=== PATIENT | male | born 1940 | race Caucasian/White ===

== ENCOUNTER → 2017-01-03 | Outpatient (CLI) | payer MEDICARE, BC ==
[~2017-01-03] MED LIST: ALTACE 10MG TAB10 MG PO; ALTACE 5MG5 MG PO; ASPIRIN 81M81 MG/TA2 PO; ASPIRIN E.C. 8181 MG PO; CALTRATE-600 W600 MG PO; CENTRUM SILVER1 CTB PO; COLACE 100100 MG/CAP PO; DECADRON 4MG TAB4 MG PO; FLOMAX 0.40.4 MG/CAP PO; K-DUR20 MEQ PO; LASIX 20MG TABL20 MG PO; LEVAQUIN 750MG750 M1 PO; METOPROLOL25 MG PO; MULTI VITAMINS1 TAB PO; NEXIUM 20MG20 MG; NEXIUM 20MG20 MG PO; NEXIUM40 MG PO; PERICOLACE 30 M1 CAP PO; REVLIMID2.5 MG; TOPROL XL 25MG25 MG PO; TOPROL XL 50MG50 MG PO; VELCADE3.5 MG IV; ZOCOR; ZOCOR 20MG20 MG PO; ZOFRAN8 MG PO; ZOMETA4 MG/5 ML IV; ZOVIRAX400 MG PO
== END ==
LOC: COL.RAD 07:55
DX: K44.9 Diaphragmatic hernia without obstruction or gangrene (principal); R10.84 Generalized abdominal pain; M54.5 Low back pain; R61 Generalized hyperhidrosis
CPT/HCPCS: Q9967

== ENCOUNTER → 2017-04-08 | Outpatient (CLI) | payer MEDICARE, BC | LOC: COL.RAD 07:35 | DX: C61 Malignant neoplasm of prostate (principal); M47.816 Spondylosis without myelopathy or radiculopathy, lumbar region; S22.089A Unspecified fracture of T11-T12 vertebra, initial encounter for closed fracture | CPT/HCPCS: A9503 ==

== ENCOUNTER 2017-05-15 10:47 | Emergency (ER) | payer MEDICARE, BC ==
[~2017-05-15] VITALS: Ht 185.4 cm; Wt 90.0 kg
[~2017-05-15 10:47] MED LIST changes: -ALTACE 5MG5 MG PO; -ASPIRIN 81M81 MG/TA2 PO; -CALTRATE-600 W600 MG PO; -CENTRUM SILVER1 CTB PO; -DECADRON 4MG TAB4 MG PO; -K-DUR20 MEQ PO; -LASIX 20MG TABL20 MG PO; -LEVAQUIN 750MG750 M1 PO; -MULTI VITAMINS1 TAB PO; -NEXIUM 20MG20 MG; -NEXIUM 20MG20 MG PO; -REVLIMID2.5 MG; -TOPROL XL 50MG50 MG PO; -VELCADE3.5 MG IV; -ZOFRAN8 MG PO; -ZOMETA4 MG/5 ML IV; -ZOVIRAX400 MG PO
[2017-05-15 10:52] VITALS: TEMP 98.6
[2017-05-15] MEDS ORDERED: TOPROL XL 50MG50 MG PO (11:10)
[2017-05-15] MEDS ORDERED: NEXIUM 20MG20 MG PO (11:11)
[2017-05-15] MEDS ORDERED: MULTI VITAMINS1 TAB PO (11:12)
[2017-05-15 11:36] LABS: EOS % 0.3 % (0-4.0); GRAN # 2.1 (1.4-6.5); GRAN % 66.8 % (42.2-75.2); LYMPH # 0.8 (1.2-3.4); LYMPH % 26.6 % (20.0-51.0); MEAN CELL VOLUME 100 fl (80.0-100.0); MEAN CORPUSCULAR HGB CONC 34 g/dl (33.0-37.0); MEAN PLATELET VOLUME 10.1 fl (7.4-10.4); MONO # 0.2 (0.1-0.6); PLATELET COUNT 195 K/mm3 (130-400); RED BLOOD COUNT 2.87 M/mm3 (4.20-5.60); REDCELL DISTRIBUTION WIDTH-CV 13.7 % (11.5-14.5); RETIC % 1.9 % (0.5-3.52); WHITE BLOOD COUNT 3.2 K/mm3 (4.8-10.8)
[2017-05-15 11:40] LABS: HEMATOCRIT 28.6 % (42.0-52.0); HEMOGLOBIN 9.6 g/dl (13.5-18.0); MEAN CORPUSCULAR HEMOGLOBIN 33 pg (27.0-31.0)
[2017-05-15 11:48] LABS: ADJUSTED CALCIUM 9.1 mg/dL (8.4-10.2); ALANINE AMINOTRANSFERASE 31 U/L (21-72); ALBUMIN 4.7 gm/dL (3.5-5.0); ALKALINE PHOSPHATASE 67 U/L (50-136); ANION GAP 11 mmol/L (7-16); BILIRUBIN,TOTAL 0.5 mg/dL (0.0-1.0); BLOOD UREA NITROGEN 19 mg/dL (9-20); CALCIUM 9.7 mg/dL (8.4-10.2); CARBON DIOXIDE 25 mmol/L (22-30); CHLORIDE 100 mmol/L (98-107); CREATININE, serum 0.77 mg/dL (0.66-1.25); GLUCOSE 84 mg/dL (74-106); SODIUM 136 mmol/L (137-145)
[2017-05-15 12:01] LABS: PH 6 (5-8); SQUAMOUS EPITHELIAL None Seen /hpf; URINE APPEARANCE Clear; URINE BACTERIA Rare /hpf; URINE BILIRUBIN Negative (NEGATIVE); URINE BLOOD Negative (NEGATIVE); URINE COLOR Yellow; URINE GLUCOSE Negative (NEGATIVE); URINE KETONE Negative (NEGATIVE); URINE RBC 0-2 /hpf; URINE UROBILINOGEN Negative (NEGATIVE); URINE WBC 0-2 /hpf
[2017-05-15 12:05] LABS: C-REACTIVE PROTEIN < 0.5 mg/dL (0.0-0.9)
[2017-05-15 12:33] VITALS: BP 205/93; PULSE 65
== END 2017-05-15 12:34 | disposition home or self-care (01) ==
LOC: COL.ER 10:47
PROVIDERS: Family Medicine
DX: D64.9 Anemia, unspecified (principal); R79.89 Other specified abnormal findings of blood chemistry; I10 Essential (primary) hypertension; Z85.46 Personal history of malignant neoplasm of prostate

== ENCOUNTER → 2017-06-02 | Outpatient (CLI) | payer MEDICARE, BC ==
[~2017-06-02] MED LIST changes: +ALTACE 5MG5 MG PO; +ASPIRIN 81M81 MG/TA2 PO; +CALTRATE-600 W600 MG PO; +CENTRUM SILVER1 CTB PO; +DECADRON 4MG TAB4 MG PO; +K-DUR20 MEQ PO; +LASIX 20MG TABL20 MG PO; +LEVAQUIN 750MG750 M1 PO; +MULTI VITAMINS1 TAB PO; +NEXIUM 20MG20 MG PO; +REVLIMID2.5 MG; +TOPROL XL 50MG50 MG PO; +VELCADE3.5 MG IV; +ZOFRAN8 MG PO; +ZOMETA4 MG/5 ML IV; +ZOVIRAX400 MG PO
== END ==
LOC: COL.RAD 11:25
DX: D64.9 Anemia, unspecified (principal); M89.9 Disorder of bone, unspecified

== ENCOUNTER 2017-06-12 09:45 | Inpatient (IN) | payer MEDICARE, BC ==
[~2017-06-12] VITALS: Ht 185.4 cm; Wt 93.7 kg
[~2017-06-12 09:45] MED LIST changes: -ALTACE 5MG5 MG PO; -ASPIRIN 81M81 MG/TA2 PO; -CALTRATE-600 W600 MG PO; -CENTRUM SILVER1 CTB PO; -DECADRON 4MG TAB4 MG PO; -K-DUR20 MEQ PO; -LASIX 20MG TABL20 MG PO; -LEVAQUIN 750MG750 M1 PO; -REVLIMID2.5 MG; -VELCADE3.5 MG IV; -ZOFRAN8 MG PO; -ZOMETA4 MG/5 ML IV; -ZOVIRAX400 MG PO
[2017-06-12 10:15] LABS: MEAN CELL VOLUME 100 fl (80.0-100.0); MEAN CORPUSCULAR HGB CONC 34 g/dl (33.0-37.0); MEAN PLATELET VOLUME 10.3 fl (7.4-10.4); PLATELET COUNT 150 K/mm3 (130-400); RED BLOOD COUNT 2.63 M/mm3 (4.20-5.60); REDCELL DISTRIBUTION WIDTH-CV 14.1 % (11.5-14.5); WHITE BLOOD COUNT 5.3 K/mm3 (4.8-10.8)
[2017-06-12 10:17] LABS: ADD PATHOLOGY DIFF REVIEW NO; HEMATOCRIT 26.3 % (42.0-52.0); HEMOGLOBIN 8.8 g/dl (13.5-18.0); MEAN CORPUSCULAR HEMOGLOBIN 33 pg (27.0-31.0)
[2017-06-12] MEDS ORDERED: VELCADE3.5 MG IV (10:25)
[2017-06-12] MEDS ORDERED: ZOVIRAX400 MG PO (10:26)
[2017-06-12] MEDS ORDERED: DECADRON 4MG TAB4 MG PO (10:26)
[2017-06-12 10:30] LABS: ADJUSTED CALCIUM 8.6 mg/dL (8.4-10.2); ALBUMIN 4.2 gm/dL (3.5-5.0); BILIRUBIN,TOTAL 0.8 mg/dL (0.0-1.0); C-REACTIVE PROTEIN 6.2 mg/dL (0.0-0.9); CALCIUM 8.8 mg/dL (8.4-10.2); CREATININE, serum 0.86 mg/dL (0.66-1.25); TOTAL PROTEIN 6.7 gm/dL (6.4-8.2)
[2017-06-12 10:39] LABS: BAND 28 % (0-10); NEUTROPHILS 67 % (42.0-75.2); TOTAL CELLS COUNTED 100
[2017-06-12] MEDS ORDERED: ASPIRIN 81M81 MG/TA2 PO (10:41)
[2017-06-12] MEDS ORDERED: CENTRUM SILVER1 CTB PO (10:56)
[2017-06-12] MEDS ORDERED: CALTRATE-600 W600 MG PO (10:56)
[2017-06-12] MEDS ORDERED: NEXIUM 20MG20 MG PO (10:57)
[2017-06-12] MEDS ORDERED: TOPROL XL 50MG50 MG PO (10:58)
[2017-06-12] MEDS ORDERED: ZOCOR 20MG20 MG PO (10:58)
[2017-06-12] MEDS ORDERED: ALTACE 5MG5 MG PO (10:59)
[2017-06-12] MEDS ORDERED: FLOMAX 0.40.4 MG/CAP PO (10:59)
[2017-06-12] MEDS ORDERED: REVLIMID2.5 MG (11:01)
[2017-06-12 12:05] LABS: PH 6 (5-8); SQUAMOUS EPITHELIAL None Seen /hpf; URINE APPEARANCE Clear; URINE BACTERIA None Seen /hpf; URINE BILIRUBIN Negative (NEGATIVE); URINE BLOOD Negative (NEGATIVE); URINE COLOR Yellow; URINE GLUCOSE Negative (NEGATIVE); URINE KETONE Negative (NEGATIVE); URINE RBC 0-2 /hpf; URINE UROBILINOGEN Negative (NEGATIVE); URINE WBC 0-2 /hpf
[2017-06-12] MEDS ORDERED: ZOFRAN8 MG PO (13:31)
[2017-06-12] MEDS ORDERED: ZOMETA4 MG/5 ML IV (13:32)
[2017-06-12 14:23] VITALS: BP 154/58; PULSE 82; TEMP 98.7
[2017-06-12 16:16] VITALS: TEMP 102.9
[2017-06-12 18:00] VITALS: TEMP 99.3
[2017-06-12 18:35] LABS: CEREBROSPINAL TUBE #3; CSF APPEARANCE CLEAR; CSF COLOR COLORLESS
[2017-06-12 20:22] VITALS: BP 135/59; PULSE 86; TEMP 99.8
[2017-06-13] VITALS (7 sets, daily range): BP systolic 117–152; BP diastolic 55–67; PULSE 63–83; TEMP 98.4–101.3
[2017-06-13 10:03] LABS: GRAN # 2.8 (1.4-6.5); GRAN % 88.1 % (42.2-75.2); LYMPH # 0.3 (1.2-3.4); LYMPH % 10.6 % (20.0-51.0); MEAN CELL VOLUME 102 fl (80.0-100.0); MEAN CORPUSCULAR HGB CONC 33 g/dl (33.0-37.0); MEAN PLATELET VOLUME 10.1 fl (7.4-10.4); PLATELET COUNT 124 K/mm3 (130-400); RED BLOOD COUNT 2.24 M/mm3 (4.20-5.60); REDCELL DISTRIBUTION WIDTH-CV 14.6 % (11.5-14.5); WHITE BLOOD COUNT 3.1 K/mm3 (4.8-10.8)
[2017-06-13 10:05] LABS: HEMATOCRIT 22.9 % (42.0-52.0); HEMOGLOBIN 7.5 g/dl (13.5-18.0); MEAN CORPUSCULAR HEMOGLOBIN 33 pg (27.0-31.0)
[2017-06-14 03:52] VITALS: BP 148/56; PULSE 64; TEMP 98.6
[2017-06-14 06:23] LABS: EOS % 0.4 % (0-4.0); GRAN # 1.9 (1.4-6.5); GRAN % 78.4 % (42.2-75.2); LYMPH # 0.5 (1.2-3.4); LYMPH % 19.2 % (20.0-51.0); MEAN CELL VOLUME 102 fl (80.0-100.0); MEAN CORPUSCULAR HGB CONC 33 g/dl (33.0-37.0); MEAN PLATELET VOLUME 10.8 fl (7.4-10.4); MONO % 1.6 % (1.7-9.3); PLATELET COUNT 110 K/mm3 (130-400); REDCELL DISTRIBUTION WIDTH-CV 14.4 % (11.5-14.5); WHITE BLOOD COUNT 2.5 K/mm3 (4.8-10.8)
[2017-06-14 06:25] LABS: HEMATOCRIT 21.5 % (42.0-52.0); MEAN CORPUSCULAR HEMOGLOBIN 33 pg (27.0-31.0)
[2017-06-14 06:32] LABS: CREATININE, serum 0.78 mg/dL (0.66-1.25); POTASSIUM 3.7 mmol/L (3.4-5.0)
[2017-06-14 08:00] VITALS: BP 153/78; PULSE 68; TEMP 98.5
[2017-06-14 11:35] VITALS: BP 135/62; PULSE 62; TEMP 98.4
[2017-06-14 14:11] VITALS: BP 133/60; PULSE 63; TEMP 98
[2017-06-14 14:25] VITALS: BP 129/60; PULSE 62; TEMP 98
[2017-06-14 20:39] VITALS: BP 159/68; PULSE 63; TEMP 97.7
[2017-06-15 00:24] VITALS: BP 172/68; PULSE 58; TEMP 97.9
[2017-06-15 04:26] VITALS: BP 181/75; PULSE 59; TEMP 98.3
[2017-06-15 07:26] LABS: EOS % 0.5 % (0-4.0); GRAN # 1.5 (1.4-6.5); GRAN % 70.1 % (42.2-75.2); LYMPH # 0.6 (1.2-3.4); LYMPH % 27.5 % (20.0-51.0); MEAN CELL VOLUME 99 fl (80.0-100.0); MEAN CORPUSCULAR HGB CONC 33 g/dl (33.0-37.0); MEAN PLATELET VOLUME 10.5 fl (7.4-10.4); MONO % 1.4 % (1.7-9.3); PLATELET COUNT 125 K/mm3 (130-400); RED BLOOD COUNT 2.48 M/mm3 (4.20-5.60); REDCELL DISTRIBUTION WIDTH-CV 15.3 % (11.5-14.5); WHITE BLOOD COUNT 2.1 K/mm3 (4.8-10.8)
[2017-06-15 07:44] VITALS: BP 154/67; PULSE 66; TEMP 98.5
[2017-06-15 07:46] LABS: HEMATOCRIT 24.5 % (42.0-52.0); HEMOGLOBIN 8.1 g/dl (13.5-18.0); MEAN CORPUSCULAR HEMOGLOBIN 33 pg (27.0-31.0)
[2017-06-15] MEDS ORDERED: LEVAQUIN 750MG750 M1 PO (10:53)
[2017-06-15] MEDS ORDERED: K-DUR20 MEQ PO (10:57)
[2017-06-15] MEDS ORDERED: LASIX 20MG TABL20 MG PO (10:57)
[2017-06-15 11:58] VITALS: BP 126/94; PULSE 59; TEMP 98.3
== END 2017-06-15 13:20 | disposition home or self-care (01) | DRG 872 ==
LOC: COL.ER 09:45 → MEDICAL 12:14
PROVIDERS: Family Medicine; Internal Medicine; Internal Medicine Medical Oncology; Physician Assistant
PROC: 009U3ZX Drainage of Spinal Canal, Percutaneous Approach, Diagnostic (ICD-10-PCS; principal; 2017-06-12)
PROC: B01B1ZZ Fluoroscopy of Spinal Cord using Low Osmolar Contrast (ICD-10-PCS; 2017-06-12)
DX: A41.9 Sepsis, unspecified organism (principal); E87.1 Hypo-osmolality and hyponatremia; C90.00 Multiple myeloma not having achieved remission; M54.2 Cervicalgia; I25.10 Atherosclerotic heart disease of native coronary artery without angina pectoris; Z95.5 Presence of coronary angioplasty implant and graft; I10 Essential (primary) hypertension; D64.9 Anemia, unspecified; T45.1X5A Adverse effect of antineoplastic and immunosuppressive drugs, initial encounter
CPT/HCPCS: 99223-AI; 99233-AI; 99239; G0378; G8987-GO; G8988-GO; J0133; J0692; J1650; J1940; J2405; J3370; J7030; J7040; J7050; P9040

== ENCOUNTER 2017-06-30 09:37 | Outpatient (RCR) | payer MEDICARE, BC ==
[2017-06-30] VITALS (9 sets, daily range): BP systolic 159–187; BP diastolic 71–88; PULSE 52–84; TEMP 97.1–98.2
[~2017-06-30] VITALS: Ht 185.4 cm; Wt 93.2 kg
[~2017-06-30 09:37] MED LIST changes: +ALTACE 5MG5 MG PO; +ASPIRIN 81M81 MG/TA2 PO; +CALTRATE-600 W600 MG PO; +CENTRUM SILVER1 CTB PO; +DECADRON 4MG TAB4 MG PO; +K-DUR20 MEQ PO; +LASIX 20MG TABL20 MG PO; +LEVAQUIN 750MG750 M1 PO; +REVLIMID2.5 MG; +VELCADE3.5 MG IV; +ZOFRAN8 MG PO; +ZOMETA4 MG/5 ML IV; +ZOVIRAX400 MG PO
== END 2017-06-30 15:52 | disposition home or self-care (01) ==
LOC: EUO 09:37
DX: C90.00 Multiple myeloma not having achieved remission (principal)
CPT/HCPCS: J7050; P9016

== ENCOUNTER 2018-06-15 13:29 | Outpatient (RCR) | payer MEDICARE, BC ==
[2018-09-02] MEDS ORDERED: K-DUR 10 MEQ T10 MEQ PO (10:34)
[2018-09-02] MEDS ORDERED: LASIX 40MG TABL40 MG PO (10:34)
[2018-09-02] MEDS ORDERED: REVLIMID25 MG PO (10:35)
[2018-09-02] MEDS ORDERED: K-DUR20 MEQ PO (10:35)
[2018-09-02] MEDS ORDERED: EMPLICITI300 MG IV (10:37)
[2018-09-02] MEDS ORDERED: AMOXICILLIN 8751 TAB PO (11:53)
== END 2018-09-13 | disposition home or self-care (01) ==
LOC: WSST
DX: R13.12 Dysphagia, oropharyngeal phase (principal)
CPT/HCPCS: G8996-GN; G8997-GN

== ENCOUNTER → 2018-06-16 | Outpatient (CLI) | payer MEDICARE, BC | LOC: COL.RAD 10:25 | DX: R13.12 Dysphagia, oropharyngeal phase (principal) | CPT/HCPCS: G8996-GN; G8997-GN; G8998-GN ==

== ENCOUNTER → 2018-07-06 | Outpatient (CLI) | payer MEDICARE, BC | LOC: COL.VAS 14:08 | DX: R22.41 Localized swelling, mass and lump, right lower limb (principal); Z85.79 Personal history of other malignant neoplasms of lymphoid, hematopoietic and related tissues ==

== ENCOUNTER 2018-09-02 09:05 | Emergency (ER) | payer MEDICARE, BC ==
[~2018-09-02] VITALS: Ht 185.4 cm; Wt 82.7 kg
[2018-09-02 10:12] LABS: HEMATOCRIT 29.6 % (42.0-52.0); HEMOGLOBIN 9.8 g/dl (13.5-18.0); MEAN CELL VOLUME 94 fl (80.0-100.0); MEAN CORPUSCULAR HEMOGLOBIN 31 pg (27.0-31.0); MEAN CORPUSCULAR HGB CONC 33 g/dl (33.0-37.0); MEAN PLATELET VOLUME 11.3 fl (7.4-10.4); PLATELET COUNT 268 K/mm3 (130-400); RED BLOOD COUNT 3.16 M/mm3 (4.20-5.60); REDCELL DISTRIBUTION WIDTH-CV 14.2 % (11.5-14.5)
[2018-09-02 10:24] LABS: ALBUMIN 3.2 gm/dL (3.5-5.0); BILIRUBIN,TOTAL 0.3 mg/dL (0.0-1.0); C-REACTIVE PROTEIN 4.5 mg/dL (0.0-0.9); CALCIUM 8.8 mg/dL (8.4-10.2); CREATININE, serum 0.97 mg/dL (0.66-1.25); TOTAL PROTEIN 5.5 gm/dL (6.4-8.2)
[2018-09-02] MEDS ORDERED: K-DUR 10 MEQ T10 MEQ PO (10:34)
[2018-09-02] MEDS ORDERED: LASIX 40MG TABL40 MG PO (10:34)
[2018-09-02] MEDS ORDERED: REVLIMID25 MG PO (10:35)
[2018-09-02] MEDS ORDERED: K-DUR20 MEQ PO (10:35)
[2018-09-02 10:36] LABS: ERYTHROCYTE SEDIMENTATION RATE 20 mm/hr (0-30)
[2018-09-02] MEDS ORDERED: EMPLICITI300 MG IV (10:37)
[2018-09-02] MEDS ORDERED: AMOXICILLIN 8751 TAB PO (11:53)
[2018-09-02 14:41] VITALS: BP 119/63; PULSE 62; TEMP 98.4
== END 2018-09-02 14:41 | disposition home or self-care (01) ==
LOC: COL.ER 09:05
PROVIDERS: Family Medicine
DX: E86.0 Dehydration (principal); N39.0 Urinary tract infection, site not specified; L03.115 Cellulitis of right lower limb; Z79.82 Long term (current) use of aspirin
CPT/HCPCS: A4216; J0692; J3370; J7040

== ENCOUNTER 2018-11-20 09:26 | Outpatient (RCR) | payer MEDICARE, BC ==
[~2018-11-20] VITALS: Ht 185.4 cm; Wt 90.0 kg
[2018-11-20] VITALS (9 sets, daily range): BP systolic 143–176; BP diastolic 70–82; PULSE 58–73; TEMP 97.9–98.4
[~2018-11-20 09:26] MED LIST changes: +AMOXICILLIN 8751 TAB PO; +EMPLICITI300 MG IV; +K-DUR 10 MEQ T10 MEQ PO; +LASIX 40MG TABL40 MG PO; +REVLIMID25 MG PO
== END 2018-11-20 17:00 | disposition home or self-care (01) ==
LOC: EUO 09:26
DX: C90.00 Multiple myeloma not having achieved remission (principal); D63.0 Anemia in neoplastic disease
CPT/HCPCS: J7050; P9016

== ENCOUNTER 2019-04-13 09:43 | Outpatient (RCR) | payer MEDICARE, BC ==
[2019-04-13] VITALS (10 sets, daily range): BP systolic 128–151; BP diastolic 52–73; PULSE 54–63; TEMP 97.5–98.6
[~2019-04-13] VITALS: Ht 185.4 cm; Wt 87.7 kg
== END 2019-04-13 15:19 | disposition home or self-care (01) ==
LOC: EUO 09:43
DX: C90.00 Multiple myeloma not having achieved remission (principal); R53.83 Other fatigue
CPT/HCPCS: J7050; P9016

== ENCOUNTER 2019-11-04 16:29 | Emergency (ER) | payer MEDICARE, BC ==
[~2019-11-04] VITALS: Ht 185.4 cm; Wt 90.9 kg
[2019-11-04 16:46] VITALS: TEMP 98.4
[2019-11-04 18:17] LABS: ALBUMIN 3.4 gm/dL (3.5-5.0); BILIRUBIN,TOTAL 0.3 mg/dL (0.0-1.0); CALCIUM 8.2 mg/dL (8.4-10.2); CREATININE, serum 0.99 (0.66-1.25); TOTAL PROTEIN 5.5 gm/dL (6.4-8.2)
[2019-11-04 18:33] LABS: BASO # 0.1 (0.0-0.2); EOS # 0.1 (0.0-0.7); EOS % 2.8 % (0-4.0); GRAN # 4.1 (1.4-6.5); GRAN % 80.7 % (42.2-75.2); LYMPH # 0.5 (1.2-3.4); LYMPH % 10.7 % (20.0-51.0); MEAN CELL VOLUME 94 fl (80.0-100.0); MEAN CORPUSCULAR HGB CONC 33 g/dl (33.0-37.0); MEAN PLATELET VOLUME 10.1 fl (7.4-10.4); MONO # 0.2 (0.1-0.6); MONO % 4.4 % (1.7-9.3); PLATELET COUNT 311 K/mm3 (130-400); RED BLOOD COUNT 2.84 M/mm3 (4.20-5.60); REDCELL DISTRIBUTION WIDTH-CV 15.2 % (11.5-14.5)
[2019-11-04 18:34] LABS: HEMATOCRIT 26.7 % (42.0-52.0); HEMOGLOBIN 8.7 g/dl (13.5-18.0); MEAN CORPUSCULAR HEMOGLOBIN 31 pg (27.0-31.0)
[2019-11-04] MEDS ORDERED: ZITHROMAX Z PA250 MG PO (19:00)
[2019-11-04] MEDS ORDERED: AMOXICILLIN 8751 TAB PO (19:00)
[2019-11-04 20:10] VITALS: BP 128/75; PULSE 66
== END 2019-11-04 20:13 | disposition home or self-care (01) ==
LOC: COL.ER 16:29
PROVIDERS: Family Medicine
DX: J18.9 Pneumonia, unspecified organism (principal); C90.00 Multiple myeloma not having achieved remission; Z79.82 Long term (current) use of aspirin
CPT/HCPCS: J0456; J0696; J7030; J7050

== ENCOUNTER 2020-01-06 21:05 | Emergency (ER) | payer MEDICARE, BC ==
[~2020-01-06] VITALS: Ht 185.4 cm; Wt 88.6 kg
[~2020-01-06 21:05] MED LIST changes: +ZITHROMAX Z PA250 MG PO
[2020-01-06 21:12] VITALS: TEMP 97.8
[2020-01-06 21:41] LABS: BASO % 0.1 % (0.0-2.0); EOS # 0.1 (0.0-0.7); GRAN # 7.4 (1.4-6.5); GRAN % 80.8 % (42.2-75.2); LYMPH % 10.8 % (20.0-51.0); MEAN CELL VOLUME 89 fl (80.0-100.0); MEAN CORPUSCULAR HGB CONC 31 g/dl (33.0-37.0); MEAN PLATELET VOLUME 12.2 fl (7.4-10.4); MONO # 0.6 (0.1-0.6); MONO % 6.9 % (1.7-9.3); PLATELET COUNT 207 K/mm3 (130-400); RED BLOOD COUNT 2.61 M/mm3 (4.20-5.60); REDCELL DISTRIBUTION WIDTH-CV 15.7 % (11.5-14.5)
[2020-01-06 21:49] LABS: HEMATOCRIT 23.3 % (42.0-52.0); HEMOGLOBIN 7.2 g/dl (13.5-18.0); MEAN CORPUSCULAR HEMOGLOBIN 28 pg (27.0-31.0)
[2020-01-06 21:53] LABS: ALBUMIN 3.3 gm/dL (3.5-5.0); BILIRUBIN,TOTAL 0.2 mg/dL (0.0-1.0); CALCIUM 8.2 mg/dL (8.4-10.2); CREATININE, serum 1.03 (0.66-1.25); POTASSIUM 4.6 mmol/L (3.4-5.0); TOTAL PROTEIN 5.4 gm/dL (6.4-8.2)
[2020-01-06 22:44] LABS: COLLECTION METHOD CLEAN CATCH
[2020-01-06 22:49] LABS: MUCOUS Present /lpf; PH 5 (5-8); SQUAMOUS EPITHELIAL 0-2 /hpf; URINE APPEARANCE Clear; URINE BACTERIA None Seen /hpf; URINE BILIRUBIN Negative (NEGATIVE); URINE BLOOD Negative (NEGATIVE); URINE COLOR Yellow; URINE GLUCOSE Negative (NEGATIVE); URINE KETONE Negative (NEGATIVE); URINE LEUKOCYTE ESTERASE Negative (NEGATIVE); URINE NITRATE Negative (NEGATIVE); URINE PROTEIN(semi-quant) Negative (NEGATIVE); URINE RBC 0-2 /hpf; URINE UROBILINOGEN Negative (NEGATIVE)
[2020-01-06] MEDS ORDERED: DOXYCYCLINE HY100 MG PO (23:25)
[2020-01-06 23:53] VITALS: BP 146/75; PULSE 59
[2020-01-10] MEDS ORDERED: KYPROLIS10 MG (16:45)
[2020-01-10] MEDS ORDERED: DARZALEX100 MG/5 M (16:45)
== END 2020-01-06 23:53 | disposition home or self-care (01) ==
LOC: COL.ER 21:05
PROVIDERS: Physician Assistant
DX: J12.3 Human metapneumovirus pneumonia (principal); Z79.82 Long term (current) use of aspirin
CPT/HCPCS: J7030

== ENCOUNTER 2020-01-23 13:00 | Outpatient (RCR) | payer MEDICARE, BC ==
--- NOTE | 2020-01-22 10:01 | NUR ---
Per Anaeblle,Blood bank tech pt blood sample had to be sent to [facility] to crossmatch.Pt notified by this nurse and will be rescheduled as soon as blood product is available.Nano Reyes at Dr Moore office notified.
[2020-01-23] VITALS (9 sets, daily range): BP systolic 110–144; BP diastolic 62–83; PULSE 48–57; TEMP 97.5–97.8
[~2020-01-23] VITALS: Ht 185.4 cm; Wt 79.1 kg
[~2020-01-23 13:00] MED LIST changes: +DARZALEX100 MG/5 M; +DOXYCYCLINE HY100 MG PO; +KYPROLIS10 MG
== END 2020-01-23 14:45 | disposition home or self-care (01) ==
LOC: EUO 13:00
DX: C90.02 Multiple myeloma in relapse (principal); D63.0 Anemia in neoplastic disease
CPT/HCPCS: J7050; P9040

== ENCOUNTER 2020-02-21 09:45 | Outpatient (RCR) | payer MEDICARE, BC ==
[2020-02-21] VITALS (10 sets, daily range): BP systolic 132–178; BP diastolic 69–689; PULSE 54–64; TEMP 97.7–98.6
--- NOTE | 2020-02-21 12:15 | NUR ---
Report received from Nano Echevarria.
== END 2020-02-21 14:36 | disposition home or self-care (01) ==
LOC: EUO 09:45
PROVIDERS: Internal Medicine
DX: C90.02 Multiple myeloma in relapse (principal); D63.0 Anemia in neoplastic disease
CPT/HCPCS: J7050; P9040

== ENCOUNTER 2020-04-14 12:16 | Inpatient (IN) | payer MEDICARE, BC ==
[~2020-04-14] VITALS: Ht 185.4 cm; Wt 92.5 kg
[2020-04-14 12:50] LABS: BASO % 0.1 % (0.0-2.0); EOS % 0.3 % (0-4.0); GRAN # 7.6 (1.4-6.5); GRAN % 83.1 % (42.2-75.2); LYMPH % 10.3 % (20.0-51.0); MEAN CELL VOLUME 95 fl (80.0-100.0); MEAN CORPUSCULAR HGB CONC 32 g/dl (33.0-37.0); MEAN PLATELET VOLUME 12.1 fl (7.4-10.4); MONO # 0.5 (0.1-0.6); MONO % 5.8 % (1.7-9.3); PLATELET COUNT 144 K/mm3 (130-400); RED BLOOD COUNT 1.84 M/mm3 (4.20-5.60); REDCELL DISTRIBUTION WIDTH-CV 16.8 % (11.5-14.5)
[2020-04-14 12:57] LABS: HEMATOCRIT 17.5 % (42.0-52.0); HEMOGLOBIN 5.6 g/dl (13.5-18.0); MEAN CORPUSCULAR HEMOGLOBIN 30 pg (27.0-31.0)
[2020-04-14 12:58] LABS: BILIRUBIN,TOTAL 0.3 mg/dL (0.0-1.0); CALCIUM 8.3 mg/dL (8.4-10.2); CREATININE, serum 1.02 (0.66-1.25); POTASSIUM 4.1 mmol/L (3.4-5.0)
[2020-04-14 13:09] LABS: PROTHROMBIN TIME 10.7 SECONDS (9.7-12.8)
[2020-04-14 13:12] LABS: PARTIAL THROMBOPLASTIN TIME 26.7 SECONDS (26.0-37.0)
[2020-04-14] MEDS ORDERED: PROTONIX20 MG PO (13:46)
[2020-04-14 15:26] VITALS: BP 108/48; PULSE 53; TEMP 97.9
[2020-04-14 15:30] LABS: IRON,SERUM 31 ug/dL (35-150)
[2020-04-14 15:39] LABS: TOTAL IRON BINDING CAPACITY 335 ug/dL (261-462)
--- NOTE | 2020-04-14 16:30 | NUR ---
Dr. Francisco in to see patient.
[2020-04-14] MEDS ORDERED: NEURONTIN300 MG/CAP PO (16:53)
[2020-04-14] MEDS ORDERED: REQUIP 1MG T1 MG/TAB PO (16:54)
--- NOTE | 2020-04-14 18:34 | NUR ---
Patient was oriented to room, initial and 5 page completed on arrival. Denies pain. Patient alert and oriented x 3, appears pale. Denies light headedness or dizziness. Up to recliner with steady gait and stand by assist. Educated on bowel prep and procedure in the morning. All questions answered. Denies further needs at this time. Will report off to material handler 2nd shift.
[2020-04-14 20:14] VITALS: BP 145/66; PULSE 65; TEMP 97.8
[2020-04-14] MEDS ORDERED: CARAFATE S1 GM/10 ML PO (22:31)
--- NOTE | 2020-04-14 23:49 | NUR ---
COMPLETED PREP FOR COLONOSCOPY, IN BED AND IVF CONNECTED TO LEFT FA. STOOL IS CLEAR.
[2020-04-15] VITALS (10 sets, daily range): BP systolic 143–175; BP diastolic 51–85; PULSE 54–71; TEMP 97.4–978
--- NOTE | 2020-04-15 01:29 | NUR ---
UP TO BATHROOM, STOOLS ARE CLEAR. GAIT STEADY, IVF CONTINUE TO LEFT FOREARM. NEEDS BLOOD TRANSFUSION, BLOOD NOT AVAILABLE AT THIS TIME.
--- NOTE | 2020-04-15 05:00 | NUR ---
RECEIVED CALL FROM LAB, [facility] HAS FINISHED WITH BLOOD TYPING. REPORTS WE HAVE 2 IRRADIATED UNITS OF BLOOD IN HOUSE, WILL NEED PATHOLOGY OR DOCTOR TO SIGN OFF ON BEFORE GIVING. PT VS STABLE AT THIS TIME. NO DOCTOR IN HOUSE.
[2020-04-15 07:36] LABS: CREATININE, serum 0.91 (0.66-1.25); POTASSIUM 3.9 mmol/L (3.4-5.0)
[2020-04-15 07:37] LABS: MEAN CELL VOLUME 96 fl (80.0-100.0); MEAN CORPUSCULAR HGB CONC 31 g/dl (33.0-37.0); MEAN PLATELET VOLUME 12.5 fl (7.4-10.4); PLATELET COUNT 150 K/mm3 (130-400); RED BLOOD COUNT 1.87 M/mm3 (4.20-5.60); REDCELL DISTRIBUTION WIDTH-CV 16.7 % (11.5-14.5)
[2020-04-15 07:47] LABS: HEMATOCRIT 17.9 % (42.0-52.0); HEMOGLOBIN 5.6 g/dl (13.5-18.0); MEAN CORPUSCULAR HEMOGLOBIN 30 pg (27.0-31.0)
--- NOTE | 2020-04-15 08:00 | NUR ---
Patient in bed resting. Alert and oriented x 3. Assessment complete. IV to left AC without complications. Appears pale, denies dizziness when up out of bed. Denies further needs at this time. Will continue to monitor.
--- NOTE | 2020-04-15 09:30 | NUR ---
Patient showered independently.
--- NOTE | 2020-04-15 10:29 | NUR ---
Lead Applications Developer met with patient to discuss discharge planning. Patient lives in [place] with his , Ting (ph#[phone]). Patient sees Dr. Vale for primary care and obtains his medications from [facility] no difficulties. Patient has a walker but reports he only uses it part of the time. Patient does not use any other DME and reports independence with [facility], however advised that his balance is sometimes not very good. Patient does not have Advance Directives in the EMR, although he states he is pretty sure he has them done. Patient reports the documents are probably in a file cabinet at home. Patient plans to return home at discharge. SW will continue to follow for any discharge needs.
--- NOTE | 2020-04-15 10:31 | NUR ---
Dr. Alvarez in to see patient. Blood transfusion initiated per orders.
[2020-04-15 12:09] LABS: ANISOCYTOSIS 1+; HYPOCHROMIA 1+; PLATELET ESTIMATE NORMAL (NORMAL); POIKILOCYTOSIS 1+
--- NOTE | 2020-04-15 14:05 | NUR ---
Patient back up from Endoscopy. Alert and oriented. Ambulated to recliner. Blood transfusion continues to infuse per order. VSS. Denies pain at this time. Denies further needs at this time.
--- NOTE | 2020-04-15 16:30 | NUR ---
Discharge education provided to patient. Educated on when to call provider and follow up labs. All questions answered. Patient independent in room. Denies further needs at this time. Patient out by wheelchair with surgical staff.
[2020-04-15 17:03] LABS: HEMOGLOBIN 7.8 g/dl (13.5-18.0)
== END 2020-04-15 18:30 | disposition home or self-care (01) | DRG 812 ==
LOC: COL.ER 12:16 → SURG 13:39
PROVIDERS: Emergency Medicine; Internal Medicine Gastroenterology; Student in an Organized Health Care Education/Training Program; ADMIT Hospitalist
PROC: 0DJ08ZZ Inspection of Upper Intestinal Tract, Via Natural or Artificial Opening Endoscopic (ICD-10-PCS; principal; 2020-04-15 10:00)
PROC: 0DJD8ZZ Inspection of Lower Intestinal Tract, Via Natural or Artificial Opening Endoscopic (ICD-10-PCS; 2020-04-15 10:00)
DX: D64.81 Anemia due to antineoplastic chemotherapy (principal); C90.00 Multiple myeloma not having achieved remission; T45.1X5A Adverse effect of antineoplastic and immunosuppressive drugs, initial encounter; I25.10 Atherosclerotic heart disease of native coronary artery without angina pectoris; I10 Essential (primary) hypertension; N40.0 Benign prostatic hyperplasia without lower urinary tract symptoms; K21.9 Gastro-esophageal reflux disease without esophagitis; K44.9 Diaphragmatic hernia without obstruction or gangrene; R19.5 Other fecal abnormalities; G62.9 Polyneuropathy, unspecified; Z95.5 Presence of coronary angioplasty implant and graft; Z85.46 Personal history of malignant neoplasm of prostate
CPT/HCPCS: OP; 99222-AI; 99239; C9113; J2704; J7030; P9040

== ENCOUNTER → 2020-04-17 | Outpatient (CLI) | payer MEDICARE, BC ==
[~2020-04-17] MED LIST changes: +CARAFATE S1 GM/10 ML PO; +NEURONTIN300 MG/CAP PO; +PROTONIX20 MG PO; +REQUIP 1MG T1 MG/TAB PO
[2020-04-17 14:13] LABS: HEMATOCRIT 23.9 % (42.0-52.0); HEMOGLOBIN 7.5 g/dl (13.5-18.0)
== END ==
LOC: COL.LAB 13:37
PROVIDERS: Student in an Organized Health Care Education/Training Program
DX: D64.9 Anemia, unspecified (principal)

== ENCOUNTER 2020-05-15 13:00 | Outpatient (RCR) | payer MEDICARE, BC ==
[~2020-05-15] VITALS: Ht 185.4 cm; Wt 91.2 kg
[2020-05-15] VITALS (9 sets, daily range): BP systolic 93–139; BP diastolic 49–69; PULSE 50–59; TEMP 97.5–98.3
--- NOTE | 2020-05-15 12:50 | NUR ---
Pt sleeping when nurse enters room. He wakes easily to name for temp check. Monitoring BP, pt states he is feeling very relaxed, denies any symptoms from decreased BP readings. Tolerating blood transfusion well. Call light remains within reach. He denies desire for lunch tray.
--- NOTE | 2020-05-15 16:00 | NUR ---
Pt assisted out by wheelchair to 's car. INT DC'd with catheter intact, site wrapped with coban and bleeding controlled.
== END 2020-05-15 16:00 ==
LOC: EUO 13:00
DX: C90.02 Multiple myeloma in relapse (principal); D64.9 Anemia, unspecified
CPT/HCPCS: J7050; P9040

== ENCOUNTER 2021-02-11 16:29 | Emergency (ER) | payer MEDICARE, BC ==
[~2021-02-11] VITALS: Ht 182.9 cm; Wt 92.3 kg
[~2021-02-11 16:29] MED LIST changes: +NORCO 325 MG-51 TAB PO; +OMNICEF 300MG300 MG PO; +THERATEARS 15 M15 ML OP
[2021-02-11 16:30] VITALS: TEMP 97.7
[2021-02-11 18:25] LABS: HEMOGLOBIN 11.5 g/dl (13.5-18.0); MEAN CELL VOLUME 88 fl (80.0-100.0); MEAN CORPUSCULAR HEMOGLOBIN 29 pg (27.0-31.0); MEAN CORPUSCULAR HGB CONC 33 g/dl (33.0-37.0); MEAN PLATELET VOLUME 10.9 fl (7.4-10.4); PLATELET COUNT 203 K/mm3 (130-400); RED BLOOD COUNT 4.02 M/mm3 (4.20-5.60); REDCELL DISTRIBUTION WIDTH-CV 15.4 % (11.5-14.5)
[2021-02-11 18:26] LABS: HEMATOCRIT 35.3 % (42.0-52.0)
[2021-02-11 18:34] LABS: CALCIUM 8.8 mg/dL (8.4-10.2); CREATININE, serum 0.82 (0.66-1.25); POTASSIUM 4.2 mmol/L (3.4-5.0)
[2021-02-11 21:15] VITALS: BP 152/80; PULSE 59
== END 2021-02-11 21:15 | disposition short-term general hospital (02) ==
LOC: COL.ER 16:29
PROVIDERS: Emergency Medicine
DX: S72.011A Unspecified intracapsular fracture of right femur, initial encounter for closed fracture (principal); Z20.822 Contact with and (suspected) exposure to COVID-19; W01.10XA Fall on same level from slipping, tripping and stumbling with subsequent striking against unspecified object, initial encounter
CPT/HCPCS: J1170; J2270; J3010

== ENCOUNTER 2021-09-19 09:31 | Emergency (ER) | payer MEDICARE, BC ==
[~2021-09-19] VITALS: Ht 182.9 cm; Wt 95.5 kg
[2021-09-19 09:40] VITALS: TEMP 98.3
[2021-09-19 10:49] LABS: BASO % 0.3 % (0.0-2.0); EOS # 0.1 K/mm3 (0.0-0.7); EOS % 1.2 % (0-4.0); GRAN # 7.7 K/mm3 (1.4-6.5); GRAN % 86.5 % (42.2-75.2); LYMPH # 0.7 K/mm3 (1.2-3.4); LYMPH % 7.3 % (20.0-51.0); MEAN CELL VOLUME 92 fl (80.0-100.0); MEAN CORPUSCULAR HEMOGLOBIN 32 pg (27.0-31.0); MEAN CORPUSCULAR HGB CONC 34 g/dl (33.0-37.0); MEAN PLATELET VOLUME 10.5 fl (7.4-10.4); MONO # 0.4 K/mm3 (0.1-0.6); MONO % 4.4 % (1.7-9.3); PLATELET COUNT 163 K/mm3 (130-400); RED BLOOD COUNT 3.81 M/mm3 (4.20-5.60); REDCELL DISTRIBUTION WIDTH-CV 15.5 % (11.5-14.5)
[2021-09-19 10:50] LABS: HEMATOCRIT 35.1 % (42.0-52.0)
[2021-09-19 11:07] LABS: ALBUMIN 3.9 gm/dL (3.4-4.8); BILIRUBIN,TOTAL 0.5 mg/dL (0.2-1.2); C-REACTIVE PROTEIN 0.44 mg/dL (0.00-0.50); CALCIUM 8.9 mg/dL (8.4-10.2); CREATININE, serum 0.89 mg/dL (0.72-1.25); POTASSIUM 4.1 mmol/L (3.5-4.5); TOTAL PROTEIN 5.9 gm/dL (6.2-8.1)
[2021-09-19] MEDS ORDERED: CLEOCIN HC150 MG/CAP PO (12:06)
[2021-09-19 13:30] VITALS: BP 184/87; PULSE 87
[2021-09-19] MEDS ORDERED: MAGIC MOUTH PO (13:37)
== END 2021-09-19 13:35 | disposition home or self-care (01) ==
LOC: COL.ER 09:31
PROVIDERS: Emergency Medicine
DX: K04.7 Periapical abscess without sinus (principal); I25.10 Atherosclerotic heart disease of native coronary artery without angina pectoris; I10 Essential (primary) hypertension; C90.01 Multiple myeloma in remission; Z51.11 Encounter for antineoplastic chemotherapy; Z79.899 Other long term (current) drug therapy
CPT/HCPCS: J1644; J2270; J7030; Q9967

== ENCOUNTER 2023-11-03 16:02 | Emergency (ER) | payer MEDICARE, BC ==
[~2023-11-03] VITALS: Ht 185.4 cm; Wt 89.5 kg
[~2023-11-03 16:02] MED LIST changes: +CLEOCIN HC150 MG/CAP PO; +MAGIC MOUTH PO
[2023-11-03] MEDS ORDERED: Amoxicillin 500 MG CAP PO ONE (17:15)
[2023-11-03] MEDS ORDERED: AMOXICILLIN875 MG PO (17:22)
[2023-11-03] MEDS ORDERED: ZOVIRAX800 MG PO (17:22)
[2023-11-03 17:45] VITALS: BP 143/72; PULSE 62; TEMP 99.3
== END 2023-11-03 17:45 | disposition home or self-care (01) ==
LOC: COL.ER 16:02
DX: B02.9 Zoster without complications (principal); J01.90 Acute sinusitis, unspecified; H10.9 Unspecified conjunctivitis; C90.00 Multiple myeloma not having achieved remission; H74.03 Tympanosclerosis, bilateral; K13.70 Unspecified lesions of oral mucosa; Z86.16 Personal history of COVID-19; Z88.2 Allergy status to sulfonamides; Z79.899 Other long term (current) drug therapy